=== PATIENT | male | born 1945 | race Caucasian/White ===

== ENCOUNTER → 2017-05-01 09:44 | Outpatient (CLI) | payer MEDICARE, OTHER, SELFPAY ==
[2017-05-01 11:04] LABS: AST(SGOT) 11 U/L (15-37); Alanine Aminotransfer ALT/SGPT 23 U/L (16-61); Albumin, Serum 3.6 g/dL (3.2-5.0); Alkaline Phosphatase 77 U/L (45-117); Bilirubin, Direct 0.18 mg/dL (0.00-0.30); Cholesterol 192 mg/dL (200); Globulin 3.2 g/dL (2.2-4.2); High Density Lipoprotein 52 mg/dL; Protein, Total 6.8 g/dL (6.4-8.2); Triglycerides 67 mg/dL; Very Low Density Lipoprotein 13 mg/dL (5-40)
[2017-05-01 11:06] LABS: Hemoglobin A1c 6.3 % (4.2-6.3)
== END ==
PROVIDERS: Family Provider Family Medicine; Visit Provider Family Medicine
DX: E78.5 Hyperlipidemia, unspecified (principal); E11.65 Type 2 diabetes mellitus with hyperglycemia
CPT/HCPCS: 36415; 80061; 80076; 83036

== ENCOUNTER 2018-03-29 14:03 | Outpatient (RCR) | payer MEDICARE, SELFPAY ==
[2018-03-29 14:25] VITALS: BP 140/75; PULSE 82; RESP 16; TEMP 36.6; BMI 25.0
--- NOTE | 2018-03-29 15:50 | PCM.WC.HP ---
(1) Leg swelling Status: Chronic Current Visit: Yes Code(s): M79.89 - Other specified soft tissue disorders (2) Edema of both legs Status: Chronic Current Visit: Yes Code(s): R60.0 - Localized edema (3) Dependent edema Status: Chronic Current Visit: Yes Code(s): R60.9 - Edema, unspecified (4) Hypertension Status: Chronic Current Visit: No Code(s): I10 - Essential (primary) hypertension (5) Prostate cancer Status: Chronic Current Visit: No Code(s): C61 - Malignant neoplasm of prostate History of Present Illness Date of Service: 03/29/18 Chief Complaint: Bilateral lower extremity swelling and edema History of Wound: This is a 72-year-old male who presents with a several year history of swelling and edema in his lower extremities. This has been rather chronic in nature, and has been occurring for several years. He denies pain. He has no history of thrombophlebitis. He has been previously treated with graduated compression stockings, which she has not worn for several years. As he has aged, his activity level has diminished. He does ambulate freely, spends long hours each day in an idle sitting position. He notices that his legs are more swollen at the end of each day. He does not present with any open wounds or ulcerations in his lower extremities. Past Medical History Past Medical History: Chronic Problems Leg swelling (Chronic) Edema of both legs (Chronic) Dependent edema (Chronic) Hypertension (Chronic) Prostate cancer (Chronic) Past Medical History: The patient's history is negative for myocardial infarction, congestive heart failure, cerebrovascular accident, diabetes mellitus, pulmonary disease, renal disease, hyperlipidemia, and thyroid disease. Patient has a history of hypertension. He also was diagnosed with prostate cancer approximately 3 years ago, which was treated by means of radiation. Surgical History: - - The patient denies major surgical intervention in the past. Allergies/Adverse Reactions: Allergies No Known Allergies Allergy (Verified 03/29/18 14:47) Home Medications: Ambulatory Orders Medication Instructions Recorded Ascorbic Acid [Vitamin C] 1,000 mg PO DAILY@0800 01/05/15 Bee Pollen 550 mg PO DAILY 01/05/15 Cholecalciferol (VIT D3) [Vitamin 1,000 unit PO DAILY 01/05/15 D] Lactobacillus Combo No.11 1 each PO DAILY 01/05/15 [Probiotic] Lisinopril [Zestril] 10 mg PO DAILY 01/05/15 Lutein 25 mg PO DAILY 01/05/15 Magnesium 250 mg PO DAILY 01/05/15 Naproxen Sodium [Aleve] 220 mg PO Q12H PRN PRN 01/05/15 Potassium Gluconate 500 mg PO DAILY 01/05/15 Ubidecarenone [Co Q-10] 100 mg PO DAILY 01/05/15 Vitamin E 400 units PO DAILY 01/05/15 - Family History Paternal - - Patient's father at the age of 80 with a history of throat cancer. The patient's mother at the age of 90, of old age and dementia. Social History: The patient is single. He denies the use of tobacco and alcohol. 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 Lives: Alone Smoking Status: Never smoker Tobacco Use: Non-smoker Alcohol: None Drugs: None Review of Systems Constitutional: Denies: Chills, Fever, Weight Change Eyes: Denies: Pain, Vision Change HEENT: Denies: Difficulty Hearing, Difficulty Swallowing, Sinus Congestion Cardiovascular: Denies: Chest Pain, Palpitations Respiratory: Denies: Cough, Shortness of Breath Gastrointestinal: Denies: Diarrhea, Nausea, Vomiting Genitourinary: Denies: Dysuria, Hematuria Endocrine: Denies: Heat/ Cold Intolerance, Polydipsia, Polyuria Hematologic/ Lymphatic: Denies: Easy Bruising, Easy Bleeding - Physical Exam Vital Signs Temp Pulse Resp BP 98 F 82 16 140/75 H 03/29/18 14:25 03/29/18 14:25 03/29/18 14:25 03/29/18 14:25 General: Alert, Oriented x3, Cooperative, No apparent distress, Well developed, Well nourished HEENT: Atraumatic, PERRLA, EOMI, Normocephalic Oral: Moist Mucosa, No Gingival or Mucosal Lesions/ Ulcerations Neck: Supple, No JVD, Negative Carotid Bruits, Negative Hepatojugular Reflux, No Nodes, No Nuchal Rigidity, Trachea Midline Lungs: Clear to auscultation, Normal air movement, No rhonchi, No wheeze, No rales Cardiovascular: Regular rate, Regular Rhythm, Normal S1, Normal S2, No murmurs Abdomen: Soft, Non Tender, Non-Distended Extremities: No clubbing, No cyanosis, No Calf Tenderness, - - Mild bilateral lower extremity swelling and edema are noted. There are no open wounds or ulcerations. There is no sign of infection or cellulitis. Circumference measurements are documented elsewhere. Skin: No rashes, No breakdown Wound Measurements and Assessment WC - Nurse 1 - General Ulcer Measurement Start: 03/29/18 14:25 Freq: Status: Active Protocol: Activity Type Activity Date Activity User E-Sign Co-Sign Detail Recorded Client Recorded Date Recorded By Document 03/29/18 14:25 DL [id number] 03/29/18 14:40 DL 03/29/18 14:25 Wound Center Nurse 1 [Ulcer Assessment] Edema only -Photo Taken Yes -Necrosis Amt None Present (0 %) -Texture (Sheela-wound Skin Appearance) Localized Edema -Moisture (Sheela-wound Skin Appearance Dry/Scaly ) -Color (Sheela-wound Skin Appearance) No Abnormality -Temperature (Sheela-wound Skin No Abnormality Appearance) (Pt Warm) -Tenderness on Palpation (Sheela-wound No Skin Appearance) -Foul Odor after Cleansing No [Edema Assessment] -Right Calf (cm) 36.0 -Right Ankle (cm) 23.5 -Left Calf (cm) 38.0 -Left Ankle (cm) 23.8 WC - Nurse 2 - General Ulcer CM Notes Start: 03/29/18 14:25 Freq: Status: Active Protocol: Activity Type Activity Date Activity User E-Sign Co-Sign Detail Recorded Client Recorded Date Recorded By Document 03/29/18 15:34 MW [id number] 03/29/18 15:43 MW 03/29/18 15:34 Wound Center Nurse 2 [Procedure/Treatment] Edema only -Time 15:34 -Correct Patient Yes -Correct Side, Site, Position Yes -Correct Procedure Yes -Procedure Performed No [See Physician Procedure note for Specifics] Pain Scale: 0-10 Numeric [Pain] -Is Patient Pain Free? Yes Musculoskeletal: No Muscle Wasting Neurological: Cranial nerves II-XII grossly intact, Neuro grossly intact Psych/Mental Status: Normal Affect, Appropriate, Alert and oriented to time, place, person, mood and affect Debridement Note Post-Debridement Measurements/Treatment WC - Nurse 2 - General Ulcer CM Notes Start: 03/29/18 14:25 Freq: Status: Active Protocol: Activity Type Activity Date Activity User E-Sign Co-Sign Detail Recorded Client Recorded Date Recorded By Document 03/29/18 15:34 MW [id number] 03/29/18 15:43 MW 03/29/18 15:34 Wound Center Nurse 2 Edema only -Time 15:34 -Correct Patient Yes -Correct Side, Site, Position Yes -Correct Procedure Yes -Procedure Performed No Pain Scale: 0-10 Numeric Is Patient Pain Free? Yes No debridement was completed today Assessment/Plan Active Problems Leg swelling (Chronic) Edema of both legs (Chronic) Dependent edema (Chronic) Assessment: This is a 72-year-old male who is generally healthy, but for hypertension and a history of prostate cancer. He presents with swelling and edema in both lower extremities, which is mild to moderate in severity. It appears related to chronic dependency, as the patient has become less active as he has advanced in age. Plan: Conservative treatment measures are to be implemented. The patient has been advised to avoid idle standing and sitting. He is to elevate his lower extremities as much as possible. Elevation is to be to heart level, or higher. Activity has been encouraged, recruiting calf and foot muscle pump activity. Initial compression will be by means of Tubigrip's, which will be applied daily. We are to use a double layer. Ultimately, it is anticipated that graduated compression stockings of at least 20-30 mmHg compression will be prescribed. A venous duplex examination and ankle-brachial indices will be obtained. The patient will return thereafter, for discussion of the results, and assessment as to initial response to conservative treatment measures. Influenza vaccine was not administered today. Patient is non-smoker. Patient weighs 175 pounds. He stands 5 feet 10 inches tall. His BMI is 25, which is normal.
== END 2018-04-15 23:59 ==
LOC: WC 14:03
PROVIDERS: Family Provider Family Medicine; Visit Provider Surgery
DX: R60.0 Localized edema (principal); M79.89 Other specified soft tissue disorders; I10 Essential (primary) hypertension; Z85.46 Personal history of malignant neoplasm of prostate; Z79.899 Other long term (current) drug therapy
CPT/HCPCS: 99213; G0463

== ENCOUNTER → 2018-06-28 05:53 | Outpatient (CLI) | payer MEDICARE, SELFPAY ==
--- NOTE | 2018-06-28 06:35 | MRI_ITS ---
STUDY: MRI BRAIN WITHOUT CONTRAST REASON FOR EXAM: Male, 73 years old. cadet, prostate ca, memory problems. TECHNIQUE: Standardized multiplanar fat and water weighted pulse sequences were obtained. COMPARISON: None. FINDINGS: There is mild cerebral atrophy with widening of the extra-axial spaces and ventricular dilatation. There are a limited number of small white matter hyperintensities, distributed throughout the deep white matter tracts of the cerebral hemispheres, consistent with mild chronic white matter ischemic changes. Normal bilateral basal ganglia. Normal thalami. There is no extra-axial fluid accumulation. Normal flow voids within the major intracranial circulation suggesting patency by spin echo criteria. Normal sella turcica, pituitary gland, infundibular stalk, optic chiasm and hypothalamus. Normal tectal plate and pineal gland. Normal midbrain, aicha and medulla. Normal cerebellum. MRI/Brain without Contrast IMPRESSION: No acute intracranial abnormality. Electronically Signed: Angelina Castillo MD at 15:53 EDT Tel , Service support ,
--- NOTE | 2018-06-28 07:26 | NM_ITS ---
CLINICAL: 73-year-old male with reported history of carcinoma of the prostate. WHOLE BODY 99m Tc MDP RADIONUCLIDE BONE SCINTIGRAPHY COMPARISON: Previous whole body bone scintigraphy study dated 03/21/2016 FINDINGS: Following the intravenous administration of 25.9 mCi of 99m Tc MDP, whole body bone images reveal: 1. Increased radiopharmaceutical concentration persists in the ninth thoracic vertebra. 2. Enhanced uptake is identified in the acromioclavicular compartments of both shoulders, sternoclavicular compartment of the right shoulder, glenohumeral compartment of the left shoulder , medial tibial compartments of both knees, left sacroiliac joint, fourth-fifth lumbar vertebra posteriorly on the right, bilateral posterior sacrum. 3. The remaining skeletal structures are scintigraphically unremarkable with normal-appearing renal images and urinary bladder activity identified. NM/Bone Scan Whole Body IMPRESSION: 1. The increase in radiopharmaceutical concentration identified in the ninth thoracic vertebra is commensurate with trauma-compression fracture. In patients > 65 years of age, increased radiopharmaceutical concentration on bone scintigraphy in uncomplicated documented fracture, may take > 18 months for complete resolution. (Joseph et al, Seminars of Nuclear Medicine, 13:104, 1983). 2. Degenerative arthritis appears currently expressed in the bilateral shoulders, right and left knees, left sacroiliac joint, lower lumbar spine and sacrum. 3. Overall compared to the previous whole body bone scintigraphy study dated 03/21/2016, there is no significant interval change. No current typical scintigraphic evidence of diffuse axial skeletal metastatic disease is defined on the current examination. Electronically Signed: Joshua Chung DO at 23:28 EDT Tel , Service support ,
== END ==
PROVIDERS: Family Provider Family Medicine; PCP Family Medicine; Referring Provider Family Medicine; Visit Provider Family Medicine
DX: C61 Malignant neoplasm of prostate (principal); R51 Headache; R41.3 Other amnesia; D63.8 Anemia in other chronic diseases classified elsewhere
CPT/HCPCS: 70551; 78306

== ENCOUNTER → 2018-08-11 10:23 | Outpatient (CLI) | payer MEDICARE, SELFPAY ==
[2018-08-11 12:49] LABS: Hematocrit 31.3 % (40-54); Mean Corp Hgb Conc 31.9 g/gl (32-36); Mean Corpuscular Hgb 26.2 pg (27.0-32.0); Mean Corpuscular Volume 82.2 fL (80-94); Mean Platelet Vol. 9.8 fl (6.2-12.0); Platelet Count 260 K/mm3 (150-450); RBC Distribution Width CV 18.1 % (11.6-14.6); RBC Distribution Width SD 54.6 fl (35.1-43.9); Red Blood Count 3.81 M/mm3 (4.6-6.2); White Blood Count 9.1 K/mm3 (4.4-11.0)
[2018-08-11 12:53] LABS: Scan Indicated on CBC? Y/N NO
[2018-08-11 13:26] LABS: Iron 56 ug/dL (65-175)
== END ==
PROVIDERS: Family Provider Family Medicine; PCP Family Medicine; Referring Provider Internal Medicine Gastroenterology; Visit Provider Internal Medicine Gastroenterology
DX: K62.5 Hemorrhage of anus and rectum (principal); D64.9 Anemia, unspecified
CPT/HCPCS: 36415; 83540; 85027